=== PATIENT | male | born 1950 | race Caucasian/White ===

== ENCOUNTER → 2016-10-22 | Outpatient (CLI) | payer OTHER ==
[~2016-10-22] MED LIST: ATROVENT INH S2.5 ML INH; DOC-Q-LACE100 MG PO; GLUCOPHAGE 850850 MG PO; GLUCOPHAGE850 MG PO; ISOSORBIDE MONO30 MG PO; KEFLEX500 MG PO; LASIX 40 MG TAB40 MG PO; LIORESAL TAB 1010 MG PO; LISINOPRIL2.5 MG PO; LOPRESSOR 50 MG50 MG PO; LOPRESSOR100 MG PO; LORTAB 7.5-3251 EACH PO; NEURONTIN 400400 MG PO; NITROGLYCERIN6.5 M1 PO; NORVASC 5 MG TAB5 MG PO; NOVOLIN 70100 UNIT/1 SQ; PLAVIX 75 MG TA75 MG PO; SODIUM BICAR PO; STARLIX 120 MG120 MG PO; SYMBICORT 16010.2 GM INH; TRICOR 48 MG TA48 MG PO; TYLENOL 500 MG500 MG PO; VENTOLIN/PROVE0.5 ML INH; VYTORIN 10-401 EACH PO
== END ==
LOC: RAD 07:17
DX: R13.10 Dysphagia, unspecified (principal); K22.8 Other specified diseases of esophagus
CPT/HCPCS: 74220